=== PATIENT | male | born 1945 | race Two or more races ===

== ENCOUNTER 2018-04-06 05:44 | Day surgery (SDC) | payer BC ==
[2018-04-06] MEDS ORDERED: oxyCODONE/Acetamin 5/325 MG* TAB PO PRN (05:51)
[2018-04-06] MEDS ORDERED: fentaNYL* 50 MCG/ML 2 ML VIAL (100 MCG VIAL) IV PRN (05:51)
[2018-04-06] MEDS ORDERED: Morphine VIAL* 4 MG/ML VIAL (1 ml vial) IV PRN (05:51)
[2018-04-06] MEDS ORDERED: DiMENhydriNATE IV* 50 MG/ML VIAL IV PUSH PRN (05:51)
[2018-04-06] MEDS ORDERED: Naloxone* 0.4 MG/ML 1 ML VIAL IV PRN (05:51)
[2018-04-06] MEDS ORDERED: PROCHLORPERAZINE INJ 5 MG/ML 2 ML VIAL IV PRN (05:51)
[2018-04-06] MEDS ORDERED: Lactated Ringers 1000 ML Bag* 1,000 ML IV SCH (06:00)
[2018-04-06] MEDS ORDERED: Ondansetron INJ* 2 MG/ML VIAL ONE (06:00)
[2018-04-06] MEDS ORDERED: Buffered Lidocaine 0.9% SYRIN* 5 ML/SYR SYRINGE INTRADERM ONE (06:00)
[2018-04-06] MEDS ORDERED: Famotidine IV* 10 MG/ML 2 ML (20 mg) IV ONE (06:00)
[2018-04-06] MEDS ORDERED: Famotidine IV* 10 MG/ML 2 ML (20 mg) ONE (06:06)
[2018-04-06] MEDS ORDERED: ceFAZolin 2 GM PREMIX in ORs 2 GM/50 ML BAG IVPB ONE (06:06)
[2018-04-06] MEDS ORDERED: Ondansetron ODT TAB* 4 MG ONE (06:06)
[2018-04-06] MEDS ORDERED: fentaNYL* 50 MCG/ML 2 ML VIAL (100 MCG VIAL) ONE ×2 (07:12→07:59)
[2018-04-06] MEDS ORDERED: Midazolam* 1 MG/ML 5 ML VIAL (5 MG) ONE (07:12)
[2018-04-06] MEDS ORDERED: KETAMINE HCL* 50 MG/ML 10 ML VIAL ONE (07:12)
[2018-04-06] MEDS ORDERED: Bupivacaine 0.25% SDV PF* 10 ML VIAL INJ ONE (07:32)
[2018-04-06] MEDS ORDERED: Phenylephrine INJ* 10 MG/ML 1 ML VIAL (10 MG) ONE (07:59)
[2018-04-06] MEDS ORDERED: Propofol* 10 MG/ML 20 ML BTL ONE (07:59)
[2018-04-06] MEDS ORDERED: Ketorolac INJ* 30 MG/ML 1 ML VIAL ONE (07:59)
[2018-04-06] MEDS ORDERED: Lidocaine 2% PF * 5 ML VIAL ONE (07:59)
[2018-04-06 10:03] VITALS: BP 115/69
--- NOTE | 2018-04-07 01:22 | OP ---
DATE OF OPERATION: 04/06/18 - [facility] DATE OF : 47 SURGEON: Raimundo Shrestha MD [facility] MACHINE FEEDER: ADRIANO Aguilar. An mri assistant was needed for the procedure to aid in positioning of the arm and retraction. ANESTHESIOLOGIST: Dr. Mendes. ANESTHESIA: General. PRE-OP DIAGNOSES: 1. Left carpal tunnel syndrome. 2. Left cubital tunnel syndrome. POST-OP DIAGNOSES: 1. Left carpal tunnel syndrome. 2. Left cubital tunnel syndrome. OPERATIVE PROCEDURE: 1. Left open carpal tunnel release. 2. Left in situ cubital tunnel release. INDICATIONS: Prashant has progressive symptoms. The carpal tunnel is quite bad. He is also having some symptoms in the ulnar nerve distribution. We had talked about risks and benefits and he had wanted to proceed with surgery. ESTIMATED BLOOD LOSS: 2 mL. COMPLICATIONS: None. FINDINGS: See above and below. DESCRIPTION OF PROCEDURE: Prashant was seen in the preoperative holding area. The correct side, site, and procedure were identified. We came back to the operating room. The arm was prepped and draped in the usual fashion and a time- out was performed. The arm was exsanguinated with the Esmarch and the tourniquet was inflated to 250 mmHg. I began by making a 2 to 3 cm incision in the proximal palm in the typical location for an open carpal tunnel release. Dissection was carried down through the subcutaneous tissue and palmar fascia. The transverse carpal ligament was released off of the radial aspect of the hook of the hamate. The release was completed distally and then I came proximally and released the subcutaneous tissue and fascia and retracted that out of the way with a couple of Niels retractors. I then released the remainder of the transverse carpal ligament in distal antebrachial fascia. Once I confirmed there was absolutely no compression on the median nerve, we irrigated out the wound and the skin was closed with 4-0 nylon suture. We then abducted and externally rotated the arm. A curvilinear incision was made centered over the cubital tunnel. Dissection was carried down through the subcutaneous tissue, taking care to preserve any branches of the medial antebrachial cutaneous nerve. Osborn's ligament was opened over the nerve. There was a very prominent medial head of the triceps. There was also an anconeus epitrochlearis muscle. The anconeus epitrochlearis muscle was excised in its entirety. I placed an appendiceal retractor proximally and then released the remainder of the fascia overlying the ulnar nerve up past the arcade of [place]. Distally, I came down and placed an [employer] retractor and then released the superficial FCU fascia followed by splitting the 2 heads of the FCU and then releasing the subfascial layer over the nerve until the release was complete. Once there was absolutely nothing compressing the nerves and I had obtained hemostasis with the Bovie and bipolar cautery devices, I went ahead and checked the nerve for stability. There was no instability to the nerve, so we irrigated out the wound and the skin was closed with 3-0 Monocryl suture and Steri-Strips. Marcaine was infiltrated all around the operative sites. Soft dressings were applied and he was taken to the recovery room in stable condition. [id number] #: [id number]
== END 2018-04-06 10:05 | disposition home or self-care (01) ==
LOC: OR 05:44
PROVIDERS: ATTEND Orthopaedic Surgery Hand Surgery
DX: G56.02 Carpal tunnel syndrome, left upper limb (principal); G56.22 Lesion of ulnar nerve, left upper limb; E11.9 Type 2 diabetes mellitus without complications; Z79.84 Long term (current) use of oral hypoglycemic drugs; I10 Essential (primary) hypertension; E78.5 Hyperlipidemia, unspecified; M19.90 Unspecified osteoarthritis, unspecified site; M10.9 Gout, unspecified; Z87.891 Personal history of nicotine dependence
CPT/HCPCS: A9270-GY; J0690; J1885; J2250; J2704; J3010; J3490